=== PATIENT | male | born 1940 | race Caucasian/White ===

== ENCOUNTER 2017-06-07 06:59 | Day surgery (SDC) | payer MEDICARE, BC ==
[~2017-06-07] VITALS: Ht 177.8 cm; Wt 106.1 kg
[~2017-06-07 06:59] MED LIST: AMLO10 PO; ASCO500 PO; ASPI81EC PO; CHOL10002 PO; Hair, Skin & N1 EACH PO; Hydrocodone-Ap1 EA26 PO; LISI20 PO; LOVA40 PO; Lecithin-191200 MG PO; NO DOZ PO; OMEPRAZOLE MAGN20 MG PO; TAMS.4ER PO; Tylenol325 MG PO
== END 2017-06-07 12:07 | disposition home or self-care (01) ==
LOC: ORSCMMR 06:59 → ORD 08:30 → ORSCMMR 12:07
PROVIDERS: Podiatrist Foot & Ankle Surgery
PROC: 0QBL0ZZ Excision of Right Tarsal, Open Approach (ICD-10-PCS; principal; 2017-06-07 08:30)
PROC: 0LBN0ZZ Excision of Right Lower Leg Tendon, Open Approach (ICD-10-PCS; principal; 2017-06-07 08:30)
DX: M77.32 Calcaneal spur, left foot (principal); M76.61 Achilles tendinitis, right leg; I10 Essential (primary) hypertension; G47.33 Obstructive sleep apnea (adult) (pediatric); E66.9 Obesity, unspecified; Z68.33 Body mass index [BMI] 33.0-33.9, adult
CPT/HCPCS: C1713; J0690; J1100; J1885; J2250; J2405; J2710; J3010; J7120

== ENCOUNTER → 2018-09-18 | Outpatient (CLI) | payer MEDICARE, BC | LOC: LAB SHORT 14:47 → PLD 14:47 | DX: D48.5 Neoplasm of uncertain behavior of skin (principal) | CPT/HCPCS: 88305 ==

== ENCOUNTER 2019-12-07 09:49 | Emergency (ER) | payer OTHER, MEDICARE, BC ==
[~2019-12-07] VITALS: Ht 177.8 cm; Wt 99.8 kg
== END 2019-12-07 10:59 | disposition home or self-care (01) ==
LOC: ER 09:49
DX: Z04.1 Encounter for examination and observation following transport accident (principal); I10 Essential (primary) hypertension; Z79.899 Other long term (current) drug therapy; V48.5XXA Car driver injured in noncollision transport accident in traffic accident, initial encounter
CPT/HCPCS: 99284